=== PATIENT | female | born 1985 | race Caucasian/White ===

== ENCOUNTER 2019-12-19 05:07 | Emergency (ER) | payer BC ==
[2019-12-19] MEDS ORDERED: AMOXicillin 250 MG CAP ONE ×2 (05:38)
== END 2019-12-19 05:42 | disposition home or self-care (01) ==
LOC: BURERS 05:07
DX: K04.7 Periapical abscess without sinus (principal); F41.9 Anxiety disorder, unspecified; Z79.899 Other long term (current) drug therapy
CPT/HCPCS: 99282